=== PATIENT | female | born 1995 | race Two or more races ===

== ENCOUNTER 2023-09-19 11:39 | Emergency (ER) | payer BC ==
[~2023-09-19] VITALS: Ht 160 cm; Wt 59.0 kg
[2023-09-19] MEDS ORDERED: IBUprofen 100 MG/5 ML-120ML ML PO STA (12:53)
== END 2023-09-19 14:48 | disposition home or self-care (01) ==
LOC: ER 11:39
DX: S82.491A Other fracture of shaft of right fibula, initial encounter for closed fracture (principal); W50.0XXA Accidental hit or strike by another person, initial encounter; Y93.89 Activity, other specified; Y92.832 Beach as the place of occurrence of the external cause